=== PATIENT | female | born 1935 | race Caucasian/White ===

== ENCOUNTER 2018-03-01 13:04 | Emergency (ER) | payer MEDICARE, OTHER ==
[~2018-03-01] VITALS: Ht 160 cm; Wt 63.0 kg
[~2018-03-01 13:04] MED LIST: ALPR-384 PO; CITA10TA9 PO; DILT180C64 PO; GABA-532 PO; GLUC500C2 PO; LACT1CAP26 PO; LISI-600 PO; MAGN500C16 PO; MIRT15TA8 PO; POTA99TA18 PO; PYRI50TA10 PO; RIVA15TA PO; TRAM50TA2 PO; VANC250C12 PO
[2018-03-01] MEDS ORDERED: HYDR-3965 PO (14:29)
[2018-03-01] MEDS ORDERED: HYDROcodone/acetaminophen 5mg/325mg tablet PO ONE (14:30)
[2018-03-01 14:47] VITALS: BP 115/64
== END 2018-03-01 14:55 | disposition home or self-care (01) ==
LOC: ER 13:05
DX: S06.0X0A Concussion without loss of consciousness, initial encounter (principal); S00.03XA Contusion of scalp, initial encounter; Z79.899 Other long term (current) drug therapy; Z79.2 Long term (current) use of antibiotics; W01.0XXA Fall on same level from slipping, tripping and stumbling without subsequent striking against object, initial encounter; Y93.89 Activity, other specified; Y92.89 Other specified places as the place of occurrence of the external cause; Y99.8 Other external cause status
CPT/HCPCS: 70450; 99284

== ENCOUNTER 2019-01-17 12:34 | Emergency (ER) | payer MEDICARE, OTHER ==
[~2019-01-17] VITALS: Ht 162.6 cm; Wt 59.1 kg
[~2019-01-17 12:34] MED LIST changes: -PYRI50TA10 PO; +PYRI50TA13 PO
--- NOTE | 2019-01-17 13:26 | NUR ---
CHANGED THE CHIEF COMPLAINT TO CHEST PAIN, HAS BEEN HAVING INTERMITTENT CHEST PAIN SINCE TUESDAY
[2019-01-17] MEDS ORDERED: aspirin 81mg tab.chew PO ONE (13:30)
--- NOTE | 2019-01-17 13:58 | NUR ---
pt denies ever having chest pain, states she fell last night when her right leg gave out from sciatica pain. c/o back pain and states hx of lumbar fusion, c/o hip pains, c/o right knee and right ankle pain also, has visible swelling to right ankle. md was notified, acs protocol orders were cancelled
[2019-01-17 16:02] VITALS: BP 119/60
== END 2019-01-17 16:06 | disposition home or self-care (01) ==
LOC: ER 12:35
DX: S93.401A Sprain of unspecified ligament of right ankle, initial encounter (principal); M54.5 Low back pain; Z86.73 Personal history of transient ischemic attack (TIA), and cerebral infarction without residual deficits; Z79.899 Other long term (current) drug therapy; Z79.2 Long term (current) use of antibiotics; W18.39XA Other fall on same level, initial encounter; Y93.89 Activity, other specified; Y92.89 Other specified places as the place of occurrence of the external cause; Y99.8 Other external cause status
CPT/HCPCS: 72100; 73564; 73610; 99284